=== PATIENT | female | born 1985 | race Caucasian/White ===

== ENCOUNTER → 2016-04-02 | Outpatient (CLI) | payer BC ==
[2016-04-02 13:42] LABS: BASOPHILS % (AUTO) 0 % (0-2); EOSINOPHILS # (AUTO) 0.1 10^3uL; EOSINOPHILS % (AUTO) 1 % (0-4); LYMPHOCYTES # (AUTO) 1.5 X10^3; MEAN CORPUSCULAR HEMOGLOBIN 28.3 PG (26.0-34.0); MEAN CORPUSCULAR HGB CONC 34.5 g/dL (31.0-37.0); MEAN CORPUSCULAR VOLUME 82 FL (80-100); MEAN PLATELET VOLUME 11.1 FL (6.0-9.5); MONOCYTES # (AUTO) 0.7 X10^3; MONOCYTES % (AUTO) 9 % (3-11); NEUTROPHILS # (AUTO) 5.5 X10^3; NEUTROPHILS % (AUTO) 71 % (51-67); PLATELET COUNT 314 10^3uL (150-450)
[2016-04-02 14:08] LABS: ALBUMIN 4.4 g/dL (3.4-5.0); ANION GAP 17.8 MEQ/L (3-15); TOTAL PROTEIN 7.8 g/dL (6.4-8.5)
== END ==
LOC: LAB 13:32
PROVIDERS: ATTEND Physician Assistant
DX: R10.13 Epigastric pain (principal); R05 Cough
CPT/HCPCS: 36415; 74000; 80053; 85025

== ENCOUNTER → 2016-04-02 | Outpatient (CLI) | payer BC ==
[2016-04-02 15:23] VITALS: BP 131/82
== END ==
LOC: MHUC 12:51
PROVIDERS: ATTEND Physician Assistant
DX: R05 Cough (principal); R10.33 Periumbilical pain
CPT/HCPCS: 99213